=== PATIENT | female | born 1945 | race Two or more races ===

== ENCOUNTER → 2018-10-31 | Outpatient (CLI) | payer MEDICARE, MEDICAID | END | disposition home or self-care (01) | LOC: CVU 15:25 | PROVIDERS: ATTEND Internal Medicine Cardiovascular Disease | DX: I11.9 Hypertensive heart disease without heart failure (principal); I35.1 Nonrheumatic aortic (valve) insufficiency | CPT/HCPCS: 0399T; 93306 ==

== ENCOUNTER → 2019-01-07 | Outpatient (CLI) | payer MEDICARE, MEDICAID | END | disposition home or self-care (01) | LOC: CVU 14:17 → EDSTATUS 14:45 | PROVIDERS: ATTEND Internal Medicine Cardiovascular Disease | DX: R60.9 Edema, unspecified (principal); M79.662 Pain in left lower leg | CPT/HCPCS: 93971 ==

== ENCOUNTER → 2019-11-21 | Outpatient (CLI) | payer MEDICARE, MEDICAID ==
[~2019-11-21] MED LIST: ALLO300T PO; AMLO-150 PO; ATOR20TA37 PO; BENA40TA3 PO; HYDR25TA6 PO; METO-99 PO
[2019-11-21 16:08] LABS: ALANINE AMINOTRANSFERASE 23 U/L (12-78); ALBUMIN 3.4 g/dL (3.4-5.0); ANION GAP 6 mmol/L (5-15); CALCIUM 8.6 mg/dL (8.5-10.1); CHLORIDE 109 mmol/L (98-107); CREATININE 0.96 mg/dL (0.55-1.02)
[2019-11-21 16:10] LABS: ALKALINE PHOSPHATASE 96 U/L (45-117); BILIRUBIN,TOTAL 0.5 mg/dL (0.2-1.0); TOTAL PROTEIN 7.7 g/dL (6.4-8.2)
== END | disposition home or self-care (01) ==
LOC: STAR 14:35
PROVIDERS: ATTEND Obstetrics & Gynecology Female Pelvic Medicine and Reconstructive Surgery
DX: Z01.818 Encounter for other preprocedural examination (principal); N81.3 Complete uterovaginal prolapse; N39.3 Stress incontinence (female) (male); M25.559 Pain in unspecified hip
CPT/HCPCS: 36415; 80053; 93005

== ENCOUNTER 2019-11-25 06:33 | Day surgery (SDC) | payer MEDICARE, MEDICAID ==
[~2019-11-25] VITALS: Ht 160 cm; Wt 79.0 kg
[2019-11-25] MEDS ORDERED: NEOMY/POLYMYXIN B GU IRR. 1 ML ONE (06:35)
[2019-11-25] MEDS ORDERED: BUPIVACAINE/PF 0.25% ONE (06:35)
[2019-11-25] MEDS ORDERED: EPINEPHRINE 1 MG/ML, 1ML ONE (06:35)
[2019-11-25] MEDS ORDERED: LACTATED RINGERS 1,000 ML IV SCH (07:21)
[2019-11-25 07:25] VITALS: BP 119/83
[2019-11-25] MEDS ORDERED: ACETAMINOPHEN 500 MG TABLET PO ONE (07:30)
[2019-11-25] MEDS ORDERED: FENTANYL PF 250 MCG/5ML ONE (07:51)
[2019-11-25] MEDS ORDERED: LIDOCAINE 4%, 4 ML SYR/CANN TP ONE (08:47)
[2019-11-25] MEDS ORDERED: LIDOCAINE-MPF 2% ,5ML ONE (08:47)
[2019-11-25] MEDS ORDERED: LABETALOL 5MG/ML, 20ML IV PRN (09:00)
[2019-11-25] MEDS ORDERED: ONDANSETRON ODT 8 MG PO PRN (09:00)
[2019-11-25] MEDS ORDERED: ONDANSETRON 2MG/ML, 2ML IV PRN (09:00)
[2019-11-25] MEDS ORDERED: hydrALAzine 20 MG/ML, 1ML IV PRN (09:00)
[2019-11-25] MEDS ORDERED: PROMETHAZINE 25 MG SUPP PR PRN (09:00)
[2019-11-25] MEDS ORDERED: HYDROmorphone 2 MG/ML, 1ML IVPush PRN (09:00)
[2019-11-25] MEDS ORDERED: OXYcodone 5 MG/5 ML ORAL.SOL UDC PO PRN (09:00)
[2019-11-25] MEDS ORDERED: PROPOFOL 10 MG/ML, 20ML ONE (10:07)
[2019-11-25] MEDS ORDERED: ROCURONIUM 10MG/ML,5ML ONE (10:07)
[2019-11-25] MEDS ORDERED: GLYCOPYRROLATE 0.2MG/1ML, 5ML ONE (10:07)
[2019-11-25] MEDS ORDERED: NEOSTIGMINE 1 MG/ML, 10ML ONE (10:07)
[2019-11-25] MEDS ORDERED: DEXAMETHASONE 4 MG/ML, 1ML ONE (10:07)
[2019-11-25] MEDS ORDERED: ONDANSETRON 2MG/ML, 2ML ONE (10:07)
[2019-11-25] MEDS ORDERED: CEFAZOLIN 1,000 MG ONE (10:07)
[2019-11-25] MEDS ORDERED: SUCCINYLCHOLINE 20 MG/ML, 10ML ONE (10:07)
[2019-11-25] MEDS ORDERED: FENTANYL PF 100 MCG/2ML ONE ×3 (10:42→11:38)
[2019-11-25] MEDS ORDERED: OXYcodone 5 MG/5 ML ORAL.SOL UDC ONE ×2 (11:08→15:49)
[2019-11-25] MEDS: FENTANYL PF 100 MCG/2ML IV PRN ×5 (11:10→11:46)
[2019-11-25] MEDS ORDERED: HYDROcodone/APAP 5/325 TABLET ONE (12:06)
[2019-11-25] MEDS ORDERED: KETOROLAC 30 MG/1 ML ONE (15:59)
== END 2019-11-25 17:15 | disposition home or self-care (01) ==
LOC: OUT 06:33
PROVIDERS: ATTEND Obstetrics & Gynecology Female Pelvic Medicine and Reconstructive Surgery
DX: N81.3 Complete uterovaginal prolapse (principal); N88.8 Other specified noninflammatory disorders of cervix uteri; N84.0 Polyp of corpus uteri; N87.9 Dysplasia of cervix uteri, unspecified; D27.0 Benign neoplasm of right ovary; N39.46 Mixed incontinence; I10 Essential (primary) hypertension; M19.90 Unspecified osteoarthritis, unspecified site; Z88.5 Allergy status to narcotic agent
CPT/HCPCS: 57265; 57288; 58552; 88307; C1771; J0171; J0690; J1100; J2405; J2704; J2710; J3010; J3490; J7120; J0330

== ENCOUNTER → 2021-05-18 | Outpatient (CLI) | payer MEDICARE, MEDICAID ==
[2021-05-18 12:44] LABS: MICROSCOPIC INDICATED
== END | disposition home or self-care (01) ==
LOC: STAR 11:26
PROVIDERS: ATTEND Urology
DX: Z01.818 Encounter for other preprocedural examination (principal); N20.0 Calculus of kidney; I45.10 Unspecified right bundle-branch block; I21.19 ST elevation (STEMI) myocardial infarction involving other coronary artery of inferior wall
CPT/HCPCS: 81001; 87086; 93005

== ENCOUNTER 2021-05-26 07:29 | Day surgery (SDC) | payer MEDICARE, MEDICAID ==
[~2021-05-26] VITALS: Ht 157.5 cm; Wt 76.2 kg
[2021-05-26 08:03] VITALS: BP 153/95
[2021-05-26] MEDS ORDERED: KETOROLAC 30 MG/1 ML IVPush PRN (08:30)
[2021-05-26] MEDS ORDERED: LACTATED RINGERS 1,000 ML IV SCH (08:30)
[2021-05-26] MEDS ORDERED: ONDANSETRON 2MG/ML, 2ML IVPush PRN (08:30)
[2021-05-26] MEDS ORDERED: MEPERIDINE/PF 25MG/0.5ML IVPush PRN (08:30)
[2021-05-26] MEDS ORDERED: OXYcodone 5 MG/5 ML ORAL.SOL UDC PO PRN (08:30)
[2021-05-26] MEDS ORDERED: CHLORHEXIDINE 15 ML UDC PO ONE (08:30)
[2021-05-26] MEDS ORDERED: HYDROcodone/APAP 7.5-325MG/15ML UDC PO PRN (08:30)
[2021-05-26] MEDS ORDERED: PROMETHAZINE 25 MG/ML, 1ML IVPush PRN (08:30)
[2021-05-26] MEDS ORDERED: HYDROmorphone 1 MG/ML, 1ML INJ IVPush PRN (08:30)
[2021-05-26] MEDS ORDERED: FENTANYL PF 100 MCG/2ML IV PRN (08:30)
[2021-05-26] MEDS ORDERED: FENTANYL PF 100 MCG/2ML ONE ×2 (09:15→11:10)
[2021-05-26] MEDS ORDERED: OMNIPAQUE 350 MG/ML, 50 ML BOTTLE ONE (09:43)
[2021-05-26] MEDS ORDERED: PHENAZOPYRIDINE 200 MG TABLET PO ONE (11:00)
[2021-05-26] MEDS ORDERED: KETOROLAC 30 MG/1 ML ONE (11:00)
[2021-05-26] MEDS ORDERED: PHENAZOPYRIDINE 200 MG TABLET ONE (11:00)
[2021-05-26] MEDS ORDERED: CEFAZOLIN 1,000 MG ONE (14:56)
[2021-05-26] MEDS ORDERED: PROPOFOL 10 MG/ML, 20ML ONE (14:56)
[2021-05-26] MEDS ORDERED: DEXAMETHASONE 4 MG/ML, 1ML ONE (14:56)
[2021-05-26] MEDS ORDERED: ONDANSETRON 2MG/ML, 2ML ONE (14:56)
== END 2021-05-26 12:30 | disposition home or self-care (01) ==
LOC: OUT 07:29
PROVIDERS: ATTEND Urology
DX: N20.0 Calculus of kidney (principal); I10 Essential (primary) hypertension; Z88.5 Allergy status to narcotic agent; Z79.82 Long term (current) use of aspirin; Z79.899 Other long term (current) drug therapy; Z72.89 Other problems related to lifestyle
CPT/HCPCS: 52351; 74420; C1769; J0690; J1100; J1885; J2405; J2704; J3010; J7120; Q9967